=== PATIENT | male | born 1960 | race Caucasian/White ===

== ENCOUNTER → 2022-02-13 | Outpatient (CLI) | payer SELFPAY ==
--- NOTE | 2022-02-13 10:24 | Diagnostic Imaging Report ---
INDICATION: Family history of heart disease, coronary artery screening CT cardiac calcium study performed with noncontrast images of the heart followed by calculation of cardiac calcium score. Raw data images demonstrate extensive coronary calcifications. There are calcified nodes in the mediastinum compatible with granulomatous disease as well as calcified right hilar nodes compatible with granulomatous disease. There is no pleural fluid. Visualized portions of the lung latham show no focal abnormalities, the entirety lungs are not included on this study. Cardiac calcium scoring is as follows: Score of 27.8 for left main, score of 329 for LAD, score of 282 for left circumflex coronary, score of 635 for right coronary artery. Total score was 1317, compatible with extensive overall plaque burden. IMPRESSION: Elevated coronary calcium score compatible with extensive calcified plaque burden. Dictated by: Dictated on workstation # [id number]
== END ==
LOC: RAD 09:03
PROVIDERS: ATTEND Internal Medicine
DX: Z13.6 Encounter for screening for cardiovascular disorders (principal); I25.83 Coronary atherosclerosis due to lipid rich plaque
CPT/HCPCS: 75571

== ENCOUNTER → 2022-03-11 | Outpatient (CLI) | payer BC ==
[~2022-03-11] MED LIST: CATHETER FLUSH 10 ML SYR IVP PRN; REGADENOSON 0.4 MG/5 ML SYR (LEXISCAN) IV ONE
[2022-03-11 07:56] VITALS: BP 176/115
--- NOTE | 2022-03-11 10:39 | Cardiology Stress Test Report ---
Stress Test Report Date of Procedure/Referring: Date of Procedure: Mar 11, 2022 PCP Pee Decker DO Admitting Physician Admitting Physician: Attending Physician: Pee Decker DO Baseline Vital Signs Vital Signs Date Time Temp Pulse Resp B/P (MAP) Pulse Ox O2 Delivery O2 Flow Rate FiO2 03/11/22 07:56 78 176/115 (135) Summary: Patient receive a resting and stress dose of Myoview, images were acquired and reviewed in the short axis view, horizontal long axis view and vertical long axis view. TID: 1.23 SSS: 3 SDS: 3 EF: 60 1. Diaphragmatic attenuation affecting the quality of the images, there is reversible ischemia involving the inferolateral wall and transient ischemic dilatation suggestive of multi vessel coronary artery disease 2. Normal left ventricular size, ejection fraction 60% Copy Copies To 1: PEE DECKER BASHAR J MD Mar 11, 2022 10:39
== END ==
LOC: CARD 07:00
PROVIDERS: ATTEND Internal Medicine
DX: Z13.6 Encounter for screening for cardiovascular disorders (principal)
CPT/HCPCS: 78452; 93017; A9502

== ENCOUNTER 2022-04-24 10:00 | Day surgery (SDC) | payer BC ==
[~2022-04-24] VITALS: Ht 177 cm; Wt 95.6 kg
[2022-04-24] VITALS (9 sets, daily range): BP systolic 126–142; BP diastolic 67–92
--- NOTE | 2022-04-24 08:41 | Diagnostic Imaging Report ---
INDICATION: dyspnea. TECHNIQUE: Single view chest 8:26 AM. CORRELATION STUDY: None FINDINGS: The heart size, mediastinal configuration and pulmonary vascularity are within normal limits. The lungs are clear with no consolidating infiltrate. There is no significant effusion or pneumothorax. IMPRESSION: 1. Negative appearing single view chest. Dictated by: Dictated on workstation # [id number]
[2022-04-24 09:08] LABS: HEMATOCRIT 48 % (40-54); HEMOGLOBIN 17.3 g/dL (13.3-17.7); MEAN CORPUSCULAR HEMOGLOBIN 31 pg (25-34); MEAN CORPUSCULAR HGB CONC 36 g/dL (32-36); MEAN CORPUSCULAR VOLUME 86 fL (80-99); MEAN PLATELET VOLUME 8.6 fL (9.0-12.2); PLATELET COUNT 275 10^3/uL (130-400); WHITE BLOOD COUNT 6.8 10^3/uL (4.3-11.0)
[2022-04-24 09:19] LABS: PROTHROMBIN TIME PATIENT 13.3 SEC (12.2-14.7)
[2022-04-24 09:27] LABS: ALBUMIN 4.2 GM/DL (3.2-4.5); CALCIUM 9.4 MG/DL (8.5-10.1); CREATININE SERUM 1.14 MG/DL (0.60-1.30); POTASSIUM 3.9 MMOL/L (3.6-5.0); TOTAL PROTEIN 7.3 GM/DL (6.4-8.2)
[~2022-04-24 10:00] MED LIST changes: +ASPI-1238 PO; +ATOR20TA66 PO; -CATHETER FLUSH 10 ML SYR IVP PRN; +CHOL400T PO; +HEParin (CATH LAB) 2,000 ML IV ONE; +LIDOCAINE 1% INJ 20 ML VIAL ONE; +NS IV 1000 ML 1,000 ML IV SCH; +NS IV 1000 ML 1,000 ML ONE; +OMEP20TA56 PO; -REGADENOSON 0.4 MG/5 ML SYR (LEXISCAN) IV ONE
--- NOTE | 2022-04-24 10:16 | Cardiac Procedure Note-CS/ASA ---
Pre-Procedure Note Pre-Op Procedure Note Date of Available H&P: Apr 15, 2022 Date H&P Reviewed: Apr 24, 2022 Time H&P Reviewed: 10:15 History & Physical: H&P Reviewed, Patient Examed, No changes noted Pre-Operative Diagnosis: CAD Conscious Sedation Pre-Proced Time 10:15 ASA Score 3 For ASA 3 and 4: Consider anesthesia and medical clearance. Also, for patients with a history of failed moderate sedation consider anesthesia. Airway Lungs Heart ASA score ASA 1: a normal healthy patient ASA 2: a patient with a mild systemic disease (mid diabetes, controlled hypertension, obesity ASA 3: a patient with a severe systemic disease that limits activity (angina, COPD, prior Myocardial infarction) ASA 4: a patient with an incapacitating disease that is a constant threat to life (CHF, renal failure) ASA 5: a moribund patient not expected to survive 24 hrs. (ruptured aneurysm) ASA 6: a declared brain- patient whose organs are being harvested. For emergent operations, add the letter E after the classification Mallampati Classification Grade 3 Sedation Plan Analgesia, Amnesia, Plan communicated to team members, Discussed options with patient/fam, Discussed risks with patient/fam The patient is an appropriate candidate to undergo the planned procedure, sedation, and anesthesia. The patient immediately re-assessed prior to indication. FIDEL ALCARAZ MD Apr 24, 2022 10:15
[2022-04-24] MEDS ORDERED: HEParin 1000 UNIT/ML (10ML VIAL) FOR BOLUS ONE (10:31)
[2022-04-24] MEDS ORDERED: VERAPAMIL 5 MG/2 ML (CALAN) VIAL IV ONE (10:31)
[2022-04-24] MEDS ORDERED: NITRO DRIP 25000 MCG/D5W 250 ML IV ONE (10:31)
--- NOTE | 2022-04-24 11:05 | Discharge Inst-Post CATH ---
Discharge Inst-CATH/EP Problems Reviewed?: Yes Post Cardiac Cath/EP D/C Inst Follow Up/Plan Appointment with Dr. Morales's office in 2 to 4 weeks <b>CARDIAC CATH/EP PROCEDURE DISCHARGE INSTRUCTIONS</b> ACTIVITY * Go Home directly and rest. * Limit activity of the leg (or wrist if it was used) for 7 days including aer obics, swimming, jogging, bicycling, etc. * Restrict stair-climbing for 7 days if possible, if not, climb up with your non-cath leg, then bring together on the same step. * Avoid lifting, pushing, pulling or excessive movement of the affected extremi ty for 7 days. * Customary sexual activity may be resumed after 2 days-use caution not to use a position that strains or causes pain to the affected extremity. * No driving for 24 hours. * NO SMOKING. * Avoid straining for bowel movements for 7 days. * Gentle walking on level ground is allowed. * Returning to work will depend on the type of procedure and the results. Your doctor will discuss this with you. CALL YOUR DOCTOR FOR ANY OF THE FOLLOWING: *If bleeding from the puncture site occurs- Apply gentle pressure to site with clean cloth and call your doctor or EMS. * If a knot or lump forms under the skin, increases in size, or causes pain. * If bruising appears to be worsening or moving further down your leg instead of disappearing. * Temperature above 101 F. CARE OF YOUR GROIN INCISION; * Bruising or purple discoloration of the skin near the puncture site is common. * You may shower only, no bathtub bathing for 5 days. Be careful to avoid slipping as your leg may feel stiff. * If a closure device was used on your femoral artery, please see the attached guide regarding care of the device and your leg. * Leave dressing on FOR 24 hours. CARE OF YOUR WRIST INCISION; * Bruising or purple discoloration of the skin near the puncture site is common. * You may shower. * DO NOT submerge wrist. * Leave dressing on FOR 24 hours. FIDEL MORALES MD Apr 24, 2022 11:05
--- NOTE | 2022-04-24 11:10 | Cardiac Cath Report ---
Cardiac Cath Report Physician (s)/Match Maker (s) Physician FIDEL ALCARAZ MD Pre-Procedure Diagnosis Pre-Procedure Diagnosis: CAD Post-Procedure Note Procedure Start Date: Apr 24, 2022 Name of Procedure: Left heart catheterization Aortic arch angiogram Findings/Procedure Note PROCEDURE NOTE: 62 years old gentleman with history of hypertension, hyperlipidemia, has been having increasing dyspnea, had an abnormal stress test with transient ischemic dilatation, cardiac catheterization was advised After explaining the procedure to the patient, all pros and cons were explained, all questions were answered. The patient signed the consent and then he was placed in the cardiac catheterization laboratory. Groin was prepped in SL fashion local anesthesia was used. Sheath placed in the right radial artery, I was unable to advance J-wire, used baby J-wire, has significant tortuosity in the aortic arch. Advanced to the left ventricular cavity, pressure was measure d, pullback LV to aorta was done, engage the right coronary system, I was unable to engage the left coronary system, exchanged the cath and used Elvin left catheter, angiogram was done. Catheter was pulled up to the aortic arch and aortic arch angiogram was done due to the significant tortuosity and difficulty in the engagement and the need for referral for bypass surgery. At the end of the procedure the sheath was removed. Vascular band was used FINDINGS: Hemodynamics LV 122/6, end-diastolic pressure of 6 Aorta 113/72 mean of 71 ANATOMY: Left Main is free of obstructive disease Left Anterior Descending has 60% stenosis at the mid to distal, there is a large diagonal artery with 95% stenosis that bifurcate down almost the same size as the LAD. Left Circumflex has 70% stenosis proximally and distally. Right Coronary Artery is dominant artery large artery with 60% stenosis at the mid right coronary artery LV Gram was not done, pressure was measured CONCLUSION: 1. Severe multivessel coronary artery disease involving a large diagonal artery with 95% stenosis of the diagonal that bifurcate and has almost the same size as the LAD. The LAD itself has 60% stenosis at the midportion, circumflex artery has 2 severe lesion proximally and distally, right coronary artery is a large dominant artery with severe stenosis at the midportion 2. Preserved left ventricular function per stress test and echo with normal LV EDP DISCUSSION AND RECOMMENDATION: Continue to maximize medical therapy and refer for evaluation for CABG Anesthesia Type: Conscious Sedation Estimated blood loss (mL): 25 ml Contrast Amount: 36 ml Total Radiation Dose: 320 mGy Post-Procedure Diagnosis Post-operative diagnosis: Coronary artery disease Hypertension Hyperlipidemia FIDEL ALCARAZ MD Apr 24, 2022 11:10
[2022-04-24] MEDS ORDERED: NS IV 1000 ML 1,000 ML IV SCH (11:15)
== END 2022-04-24 13:45 | disposition home or self-care (01) ==
LOC: CATH 10:00 → SDC 11:17 → CATH 13:45
PROVIDERS: ATTEND Internal Medicine Cardiovascular Disease
DX: I25.10 Atherosclerotic heart disease of native coronary artery without angina pectoris (principal); I10 Essential (primary) hypertension; F17.290 Nicotine dependence, other tobacco product, uncomplicated; E78.2 Mixed hyperlipidemia; I65.23 Occlusion and stenosis of bilateral carotid arteries; Z79.899 Other long term (current) drug therapy; Z79.82 Long term (current) use of aspirin
CPT/HCPCS: 36221; 71045; 80053; 80061; 85027; 85610; 85730; 87081; 93005; 93458; C1769 ×2; C1894; 36415

== ENCOUNTER 2022-06-19 09:22 | Outpatient (RCR) | payer BC ==
[~2022-06-19 09:22] MED LIST changes: -HEParin (CATH LAB) 2,000 ML IV ONE; -LIDOCAINE 1% INJ 20 ML VIAL ONE; -NS IV 1000 ML 1,000 ML IV SCH; -NS IV 1000 ML 1,000 ML ONE
== END 2022-06-21 | disposition home or self-care (01) ==
LOC: CR 09:22
PROVIDERS: ATTEND Thoracic Surgery (Cardiothoracic Vascular Surgery)
DX: I25.119 Atherosclerotic heart disease of native coronary artery with unspecified angina pectoris (principal)
CPT/HCPCS: 93798

== ENCOUNTER 2022-07-19 09:16 | Outpatient (RCR) | payer BC | END 2022-07-21 | disposition home or self-care (01) | LOC: CR 09:16 | PROVIDERS: ATTEND Thoracic Surgery (Cardiothoracic Vascular Surgery) | DX: Z29.8 Encounter for other specified prophylactic measures (principal); I25.119 Atherosclerotic heart disease of native coronary artery with unspecified angina pectoris | CPT/HCPCS: 93798 ==

== ENCOUNTER → 2022-07-19 | Outpatient (CLI) | payer BC ==
--- NOTE | 2022-07-19 16:36 | Diagnostic Imaging Report ---
EXAMINATION: Chest 2 view HISTORY: Pleural effusion COMPARISON: 04/24/2022 FINDINGS: There is a small left pleural effusion with overlying areas of scarring or atelectasis. No pneumothorax. Heart size is normal. Median sternotomy wires are aligned. Left atrial appendage clip is present. IMPRESSION: 1. Small left pleural effusion with overlying atelectasis or scarring. Dictated by: Dictated on workstation # [id number]
== END ==
LOC: RAD 11:33
PROVIDERS: ATTEND Nurse Practitioner Family
DX: J90 Pleural effusion, not elsewhere classified (principal)
CPT/HCPCS: 71046

== ENCOUNTER 2022-07-22 07:35 | Outpatient (RCR) | payer BC | END 2022-08-21 | disposition home or self-care (01) | LOC: CR 07:35 | PROVIDERS: ATTEND Thoracic Surgery (Cardiothoracic Vascular Surgery) | DX: Z29.8 Encounter for other specified prophylactic measures (principal); I25.119 Atherosclerotic heart disease of native coronary artery with unspecified angina pectoris | CPT/HCPCS: 93798 ==

== ENCOUNTER 2022-11-14 07:35 | Inpatient (IN) | payer BC ==
[~2022-11-14] VITALS: Ht 177.8 cm; Wt 91.7 kg
--- NOTE | 2022-11-14 08:09 | ED Cardiac General ---
History of Present Illness General Chief Complaint: Cardiac/General Problems Stated Complaint: HIGH BLOOD PRESSURE | POST HEART SURGERY 6 MOS Nursing Triage Note: Patient c/o elevated blood pressure last night and this am. Patient states he had bypass surgery May 10, 2022. Patient states his average blood pressure yesterday was 158/100 and was 152/103 this am. Patient denies any chest pain or increase in shortness of breath. Patient c/o slight headache last night and this am. Patient denies any visual changes. Patient denies any N/V/D. Patient states he feels anxious. Source: patient Exam Limitations: no limitations History of Present Illness Date Seen by Provider: Nov 14, 2022 Time Seen by Provider: 07:39 Initial Comments 62-year-old male with past medical history of CAD with CABG x4 about 6 months ago coming in due to he states feeling anxious. Last night he had body aches, some chest discomfort, nausea slightly but no vomiting. Denies any cough, congestion, diarrhea, rash, shortness of breath. Denies any real significant chest pain, just feels "off". He states his blood pressure was elevated last night and this morning. He is otherwise denying any other acute complaints. He states he has never really felt like this. ASA po MOBILE APPLICATION TESTER: No Allergies and Home Medications Allergies Coded Allergies: No Known Allergies (Verified Allergy, Unknown, 11/14/22) Patient Home Medication List Home Medication List Reviewed: Yes Aspirin (Aspirin EC) 81 Mg Tablet., 81 MG PO HS, (Reported) Entered as Reported by: MARQUISE HARDEN on 04/24/22913 Atorvastatin Calcium (Atorvastatin Calcium) 20 Mg Tablet, 20 MG PO HS, (Reported) Entered as Reported by: MARQUISE HARDEN on 04/24/22913 Cholecalciferol (Vitamin D3) (Vitamin D3) 10 Mcg (400 Unit) Tablet, 10 MCG PO HS, (Reported) Entered as Reported by: MARQUISE HAREDN on 04/24/22913 Omeprazole (Omeprazole) 20 Mg Tablet., 20 MG PO HS, (Reported) Entered as Reported by: MARQUISE HARDEN on 04/24/22913 Review of Systems Review of Systems Constitutional: chills; No fever; malaise EENTM: No Symptoms Reported Respiratory: No Symptoms Reported Cardiovascular: See HPI Gastrointestinal: See HPI Genitourinary: No Symptoms Reported Musculoskeletal: no symptoms reported Skin: no symptoms reported Psychiatric/Neurological: No Symptoms Reported Endocrine: No Symptoms Reported Past Qsuaazy-Hkctez-Vgoxfe Hx Patient Social History Tobacco Use?: Yes Tobacco type used: Cigars Smoking Status: Current Someday Smoker Use of E-Cig and/or Vaping dev: No Substance use?: No Alcohol Use?: Yes Alcohol type: Beer, Hard Liquor, Wine Alcohol Frequency: Couple times a week Immunizations Up To Date Influenza Vaccine Up-to-Date: Yes; Up-to-Date Past Medical History Surgery/Hospitalization HX: bypass elevated cholesterol, HTN Sleep Apnea Currently Using CPAP: No High Cholesterol, Hypertension Gastroesophageal Reflux Physical Exam Vital Signs Vital Signs - First Documented 11/14/22 11/14/22 07:47 08:25 Temp 36.0 Pulse 68 Resp 16 B/P (MAP) 145/88 (107) Pulse Ox 97 O2 Delivery Room Air Capillary Refill : Height, Weight, BMI Height: '" Weight: lbs. oz. kg; 29.00 BMI Method: General Appearance: No Apparent Distress, WD/WN HEENT: PERRL/EOMI, Normal ENT Inspection, Pharynx Normal Neck: Full Range of Motion, Normal Inspection, Non Tender, Supple Respiratory: Chest Non Tender, Lungs Clear, Normal Breath Sounds, No Accessory Muscle Use, No Respiratory Distress Cardiovascular: Regular Rate, Rhythm, No Edema, Normal Peripheral Pulses Gastrointestinal: Normal Bowel Sounds, Non Tender, Soft; No Distended, No Guarding Extremity: Normal Capillary Refill, Normal Inspection, Normal Range of Motion, Non Tender, No Calf Tenderness, No Pedal Edema Neurologic/Psychiatric: Alert, No Motor/Sensory Deficits, Normal Mood/Affect Skin: Normal Color, Warm/Dry Progress/Results/Core Measures Results/Orders Lab Results Laboratory Tests Test 11/14/22 07:55 11/14/22 08:22 Range/Units White Blood Count 7.7 4.3-11.0 10^3/uL Red Blood Count 5.65 H 4.30-5.52 10^6/uL Hemoglobin 16.5 13.3-17.7 g/dL Hematocrit 48 40-54 % Mean Corpuscular Volume 85 80-99 fL Mean Corpuscular Hemoglobin 29 25-34 pg Mean Corpuscular Hemoglobin Concent 34 32-36 g/dL Red Cell Distribution Width 13.9 10.0-14.5 % Platelet Count 324 130-400 10^3/uL Mean Platelet Volume 8.5 L 9.0-12.2 fL Immature Granulocyte % (Auto) 0 % Neutrophils (%) (Auto) 72 42-75 % Lymphocytes (%) (Auto) 17 12-44 % Monocytes (%) (Auto) 8 0-12 % Eosinophils (%) (Auto) 2 0-10 % Basophils (%) (Auto) 1 0-10 % Neutrophils # (Auto) 5.5 1.8-7.8 10^3/uL Lymphocytes # (Auto) 1.3 1.0-4.0 10^3/uL Monocytes # (Auto) 0.6 0.0-1.0 10^3/uL Eosinophils # (Auto) 0.2 0.0-0.3 10^3/uL Basophils # (Auto) 0.0 0.0-0.1 10^3/uL Immature Granulocyte # (Auto) 0.0 0.0-0.1 10^3/uL Prothrombin Time 13.3 12.2-14.7 SEC INR Comment 1.0 0.8-1.4 Activated Partial Thromboplast Time 27 24-35 SEC Sodium Level 138 135-145 MMOL/L Potassium Level 4.1 3.6-5.0 MMOL/L Chloride Level 105 98-107 MMOL/L Carbon Dioxide Level 21 21-32 MMOL/L Anion Gap 12 5-14 MMOL/L Blood Urea Nitrogen 23 H 7-18 MG/DL Creatinine 1.34 H 0.60-1.30 MG/DL Estimat Glomerular Filtration Rate 60 BUN/Creatinine Ratio 17 Glucose Level 122 H 70-105 MG/DL Calcium Level 9.3 8.5-10.1 MG/DL Corrected Calcium 9.1 8.5-10.1 MG/DL Magnesium Level 2.2 1.6-2.4 MG/DL Total Bilirubin 0.7 0.1-1.0 MG/DL Aspartate Amino Transf (AST/SGOT) 26 5-34 U/L Alanine Aminotransferase (ALT/SGPT) 34 0-55 U/L Alkaline Phosphatase 69 40-136 U/L Troponin I 0.562 *H <0.028 NG/ML B-Type Natriuretic Peptide 159.1 H <100.0 PG/ML Total Protein 7.7 6.4-8.2 GM/DL Albumin 4.2 3.2-4.5 GM/DL Lipase 19 8-78 U/L My Orders Orders - SUE GOMEZ MD Cbc With Automated Diff (11/14/22 08:06) Magnesium (11/14/22 08:06) Chest 1 View, Ap/Pa Only (11/14/22 08:06) Ekg Tracing (11/14/22 08:06) Comprehensive Metabolic Panel (11/14/22 08:06) Protime With Inr (11/14/22 08:06) Partial Thromboplastin Time (11/14/22 08:06) O2 (11/14/22 08:06) Monitor-Rhythm Ecg Trace Only (11/14/22 08:06) Ed Iv/Invasive Line Start (11/14/22 08:06) Lipase (11/14/22 08:06) Bnp Isabela (11/14/22 08:06) Troponin I Isabela (11/14/22 08:06) Aspirin Chewable Tablet (Aspirin Chewabl (11/14/22 08:15) Influenza A And B By Pcr (11/14/22 08:06) Covid 19 Inhouse Test (11/14/22 08:06) Acetaminophen Tablet (Acetaminophen Ta (11/14/22 08:15) Enoxaparin Injection (Enoxaparin Injecti (11/14/22 09:00) Code/Resuscitation (11/14/22 08:56) Medications Given in ED Current Medications Medications Dose Ordered Sig/Anny Route Start Time Stop Time Status Last Admin Dose Admin Acetaminophen 1,000 mg ONCE ONCE PO 11/14/22 08:15 11/14/22 08:16 DC 11/14/22 08:16 1,000 MG Aspirin 324 mg ONCE ONCE PO 11/14/22 08:15 11/14/22 08:16 DC 11/14/22 08:17 324 MG Vital Signs/I&O 11/14/22 11/14/22 07:47 08:25 Temp 36.0 Pulse 68 Resp 16 B/P (MAP) 145/88 (107) Pulse Ox 97 O2 Delivery Room Air Room Air Blood Pressure Mean: 107 Progress Progress Note : Progress Note 62-year-old male with above history coming in with vague discomfort, some in his chest. ABCs were intact and vitals were stable on presentation. Physical exam reassuring with no focal abnormalities. EKG with T wave inversions in V1 and V2 and ST depression in the high lateral leads which appears new from prior EKG on my interpretation. Chest x-ray with no obvious pneumonia or pneumothorax on my interpretation. An IV was placed and basic labs were obtained were significant for normal white blood cell count, normal hemoglobin, slightly elevated creatinine 1.3 just above his baseline, and elevated troponin at 0.56. I contacted Dr. Morales on cardiology. The patient has already received aspirin, he recommended giving Lovenox and trending the troponin. I then contacted Dr. Gonzalez who admit the patient to the cardiac stepdown for further evaluation and management Initial ECG Impression Date: Nov 14, 2022 Initial ECG Impression Time: 08:31 Initial ECG Rate: 64 Initial ECG Rhythm: Normal Sinus Comment Narrow QRS, normal axis, ST depressions in the high lateral leads with T wave inversions in V1 and V2, no STEMI Diagnostic Imaging Diagonstic Imaging: Xray (chest) Comments [facility] [place], [place] NAME: PARIS MACIAS [employer] REC#: [id number] PT STATUS: REG ER : 1960 PHYSICIAN: SUE GOMEZ MD ADMIT DATE: 11/14/22/ER Draft Date of Exam:11/14/22 CHEST 1 VIEW, AP/PA ONLY EXAMINATION: Chest 1 view HISTORY: Chest pain COMPARISON: 04/24/2022 FINDINGS: There has been an interval median sternotomy and coronary artery bypass graft. There is atelectasis in the left mid and lower zone. No pneumothorax. Right lung is clear. IMPRESSION: 1. Left mid and lower zone atelectasis. Dictated on workstation # [id number] Dict: 11/14/22 0838 Trans: 11/14/22 0840 ILANA [id number] Interpreted by: SERGEY GARCIA MD Electronically signed by: Departure Impression Primary Impression: NSTEMI (non-ST elevated myocardial infarction) Disposition: ADMITTED INPATIENT Condition: Stable Admissions Decision to Admit Reason: Admit from ER (General) Decision to Admit/Date: Nov 14, 2022 Time/Decision to Admit Time: 08:45 Departure-Patient Inst. Referrals: PEE DOMINGUEZ DO (PCP/Family) Primary Care Physician SUE GOMEZ MD Nov 14, 2022 08:09
[2022-11-14 08:15] LABS: BASOPHILS % (AUTO) 1 % (0-10); EOSINOPHILS # (AUTO) 0.2 10^3/uL (0.0-0.3); EOSINOPHILS % (AUTO) 2 % (0-10); HEMATOCRIT 48 % (40-54); HEMOGLOBIN 16.5 g/dL (13.3-17.7); LYMPHOCYTES # (AUTO) 1.3 10^3/uL (1.0-4.0); LYMPHOCYTES % (AUTO) 17 % (12-44); MEAN CORPUSCULAR HEMOGLOBIN 29 pg (25-34); MEAN CORPUSCULAR HGB CONC 34 g/dL (32-36); MEAN CORPUSCULAR VOLUME 85 fL (80-99); MEAN PLATELET VOLUME 8.5 fL (9.0-12.2); MONOCYTES # (AUTO) 0.6 10^3/uL (0.0-1.0); MONOCYTES % (AUTO) 8 % (0-12); NEUTROPHILS # (AUTO) 5.5 10^3/uL (1.8-7.8); NEUTROPHILS % (AUTO) 72 % (42-75); PLATELET COUNT 324 10^3/uL (130-400); WHITE BLOOD COUNT 7.7 10^3/uL (4.3-11.0)
[2022-11-14] MEDS ORDERED: ACETAMINOPHEN 500 MG TABLET PO ONE (08:15)
[2022-11-14] MEDS ORDERED: ASPIRIN 81 MG CHEWABLE TABLET PO ONE (08:15)
[2022-11-14 08:18] LABS: ALBUMIN 4.2 GM/DL (3.2-4.5); POTASSIUM 4.1 MMOL/L (3.6-5.0)
[2022-11-14 08:19] LABS: CALCIUM 9.3 MG/DL (8.5-10.1)
[2022-11-14 08:20] LABS: TOTAL PROTEIN 7.7 GM/DL (6.4-8.2)
[2022-11-14 08:22] LABS: BILIRUBIN,TOTAL 0.7 MG/DL (0.1-1.0)
[2022-11-14 08:23] LABS: PROTHROMBIN TIME PATIENT 13.3 SEC (12.2-14.7)
[2022-11-14 08:24] LABS: CREATININE SERUM 1.34 MG/DL (0.60-1.30)
[2022-11-14 08:27] LABS: MAGNESIUM 2.2 MG/DL (1.6-2.4)
--- NOTE | 2022-11-14 08:41 | Diagnostic Imaging Report ---
EXAMINATION: Chest 1 view HISTORY: Chest pain COMPARISON: 04/24/2022 FINDINGS: There has been an interval median sternotomy and coronary artery bypass graft. There is atelectasis in the left mid and lower zone. No pneumothorax. Right lung is clear. IMPRESSION: 1. Left mid and lower zone atelectasis. Dictated by: Dictated on workstation # [id number]
[2022-11-14] MEDS ORDERED: ENOXAPARIN 100 MG/1 ML SYRINGE SC ONE (09:00)
[2022-11-14 11:00] VITALS: BP 135/83
[2022-11-14] MEDS ORDERED: ONDANSETRON INJECTION 4 MG/2 ML (SDV) IVP PRN (11:30)
[2022-11-14] MEDS ORDERED: PATIENT MAY USE OWN MEDS, ALL PO SCH ×2 (11:30→17:30)
[2022-11-14] MEDS ORDERED: morphine INJ 4 MG/ML 1 ML (VIAL/SYRINGE) IV PRN (11:30)
[2022-11-14] MEDS ORDERED: NITROGLYCERIN 0.4 MG SL TABLETS BTL 25'S SL PRN (11:30)
--- NOTE | 2022-11-14 11:42 | History & Physical-Hospitalist ---
History of Present Illness HPI/Chief Complaint Patient is 62-year-old male with past medical history of coronary artery disease status post CABG in April of this year who presented to the emergency department due to generalized malaise and body aches. He reports he felt well yesterday until last evening when symptoms started "like a light switch." He reports that his blood pressure was elevated for him but was only in the 150s when he checked it last night. He has had body aches and chest discomfort that he describes as a tightness. He is unable to specify exactly how he feels but he states that he just "feels off." In the emergency departme nt he was swabbed for flu and COVID and those were both negative. He denies any cough or shortness of breath. EKG was obtained and revealed new T wave inversion in V1 V2 though we do not have baseline EKG since his CABG. A troponin level was checked and was elevated at 0.562. [facility]. He was given aspirin and therapeutic Lovenox in the emergency department. He normally follows with Dr. Morales for cardiology care. Source: patient Date Seen 11/14/22 Time Seen by a Provider: 11:37 Attending Physician Beau Decker DO PCP Admitting Physician: Pacheco Mcarthur MD Attending Physician: Pacheco Mcarthur MD Referring Physician Date of Admission Nov 14, 2022 at 10:36 Home Medications & Allergies Home Medications Reviewed patient Home Medication Reconciliation performed by pharmacy medication reconciliations technician's helper and/or nursing. Patients Allergies have been reviewed. Allergies Allergies Coded Allergies No Known Allergies (Verified Allergy, Unknown, 11/14/22) Past Parldwu-Eqkbwx-Alrmyt Hx Patient Social History Marrital Status: Tobacco Use?: Yes Tobacco type used: Cigars Smoking Status: Current Someday Smoker Use of E-Cig and/or Vaping dev: No Substance use?: No Alcohol Use?: Yes Alcohol type: Beer, Hard Liquor, Wine Alcohol Frequency: Couple times a week Current Status Communicates: Verbally Primary Language: Mosotho Preferred Spoken Language: Mosotho Is interpretation needed?: No Implanted or Applied Medical D: None Past Medical History Sleep Apnea Currently Using CPAP: No High Cholesterol, Hypertension Gastroesophageal Reflux Review of Systems Constitutional: see HPI Physical Exam Physical Exam Vital Signs Vital Signs - First Documented 11/14/22 11/14/22 07:47 08:25 Temp 36.0 Pulse 68 Resp 16 B/P (MAP) 145/88 (107) Pulse Ox 97 O2 Delivery Room Air Capillary Refill : Height, Weight, BMI Height: '" Weight: lbs. oz. kg; 29.00 BMI Method: General Appearance: No Apparent Distress, WD/WN Respiratory: Chest Non Tender, Lungs Clear, No Respiratory Distress Cardiovascular: Regular Rate, Rhythm, No Murmur, Other (midline scar on chest noted from pervious CABG) Gastrointestinal: Normal Bowel Sounds, Non Tender, Soft Extremity: Non Tender, No Pedal Edema Neurologic/Psychiatric: Alert, Oriented x3, Normal Mood/Affect Results Results/Procedures Labs Laboratory Tests 11/14/22 07:55 11/15/22 04:40 Patient resulted labs reviewed. Imaging: Reviewed Imaging Report Imaging [facility] [place], [place] NAME: PARIS MACIAS [facility] REC#: [id number] PT STATUS: REG ER : 1960 PHYSICIAN: SUE GOMEZ MD ADMIT DATE: 11/14/22/ER Draft Date of Exam:11/14/22 CHEST 1 VIEW, AP/PA ONLY EXAMINATION: Chest 1 view HISTORY: Chest pain COMPARISON: 04/24/2022 FINDINGS: There has been an interval median sternotomy and coronary artery bypass graft. There is atelectasis in the left mid and lower zone. No pneumothorax. Right lung is clear. IMPRESSION: 1. Left mid and lower zone atelectasis. Dictated on workstation # [id number] Dict: 11/14/22 0838 Trans: 11/14/22 0840 ILANA [id number] Interpreted by: SERGEY GARCIA MD Electronically signed by: Assessment/Plan Admission Diagnosis NSTEMI Admission Status: Inpatient Order (span 2 midnights) Reason for Inpatient Admission: see below Assessment and Plan NSTEMI CAD s/p CABG Trop elevated on arrival ASA and Lovenox given in ER Monitor on telemetry Trend troponin Nitro and Morphine available prn chest pain Cardiology consulted, appreciate recs pAF Rx for amiodarone in fill history but patient reports having a monitor at home and being told he doesn't have a fib Clinical Quality Measures AMI/AHF: ASA po Prior to arrival: PACHECO Gonzalez MD Nov 14, 2022 11:42
[2022-11-14] MEDS ORDERED: ACETAMINOPHEN 500 MG TABLET ONE (13:03)
[2022-11-14] MEDS: ACETAMINOPHEN 500 MG TABLET PO PRN (13:07)
[2022-11-14] MEDS ORDERED: LEVO5TAB12 PO (13:22)
[2022-11-14] MEDS ORDERED: ATOR40TA70 PO (13:22)
[2022-11-14] MEDS ORDERED: METO50TA15 PO (13:22)
[2022-11-14] MEDS ORDERED: CHOL-34 PO (13:22)
[2022-11-14] MEDS ORDERED: LIDOCAINE 1% INJ 20 ML VIAL ONE (13:27)
[2022-11-14] MEDS ORDERED: HEParin (CATH LAB) 2,000 ML IV ONE (13:27)
[2022-11-14] MEDS ORDERED: NS IV 1000 ML 1,000 ML IV SCH (13:30)
[2022-11-14 16:00] VITALS: BP 129/82
--- NOTE | 2022-11-14 16:26 | Cardiac Procedure Note-CS/ASA ---
Pre-Procedure Note Pre-Op Procedure Note Date of Available H&P: Nov 14, 2022 Date H&P Reviewed: Nov 14, 2022 Time H&P Reviewed: 16:26 History & Physical: H&P Reviewed, Patient Examed, No changes noted Pre-Operative Diagnosis: CAD Moderate Sedation PreProcedure Time 16:26 ASA Score 3 Airway Lungs Heart ASA score ASA 1: a normal healthy patient ASA 2: a patient with a mild systemic disease (mid diabetes, controlled hypertension, obesity ASA 3: a patient with a severe systemic disease that limits activity (angina, COPD, prior Myocardial infarction) ASA 4: a patient with an incapacitating disease that is a constant threat to life (CHF, renal failure) ASA 5: a moribund patient not expected to survive 24 hrs. (ruptured aneurysm) ASA 6: a declared brain- patient whose organs are being harvested. For emergent operations, add the letter E after the classification Mallampati Classification Grade 3 Sedation Plan Analgesia, Amnesia, Plan communicated to team members, Discussed options with patient/fam, Discussed risks with patient/fam The patient is an appropriate candidate to undergo the planned procedure, sedation, and anesthesia. The patient immediately re-assessed prior to indication. FIDEL ALCARAZ MD Nov 14, 2022 16:26
--- NOTE | 2022-11-14 16:26 | Consultation-Cardiology ---
HPI-Cardiology Cardiology Consultation Date of Consultation 11/14/22 Date of Admission Time Seen by Provider: 11:37 Indication: Chest pain HPI 62-year-old gentleman with history of coronary artery disease, history of CABG in April 2022. Did not feel very well, had some vague chest pain radiating to the arm and feeling pressure in his arm, came into the emergency room On my evaluation he was still having some active discomfort, vague. No acute EKG changes. Cardiac enzymes were noted to be elevated Home Medications & Allergies Allergies: Coded Allergies: No Known Allergies (Verified Allergy, Unknown, 11/14/22) Home Medication List Reviewed: Yes [id number] Hx Patient Social History Marital Status: Smoking Status: Light Tobacco Smoker Alcohol Use?: Yes Past Medical History Described below Family Medical History Significant Family History: Heart Disease Review of Systems-General Review of Systems Constitutional: see HPI EENTM: see HPI, no symptoms reported Respiratory: no symptoms reported, see HPI Cardiovascular: see HPI, chest pain; No edema, No Hx of Intervention, No palpitations, No syncope, No vascular heart diseas, No other Gastrointestinal: no symptoms reported, see HPI Genitourinary: no symptoms reported, see HPI Musculoskeletal: no symptoms reported Skin: no symptoms reported Psychiatric/Neurological: No Symptoms Reported Reviewed Test Results Reviewed Test Results Lab Laboratory Tests Test 11/14/22 07:55 11/14/22 08:22 11/14/22 12:05 Range/Units White Blood Count 7.7 4.3-11.0 10^3/uL Red Blood Count 5.65 H 4.30-5.52 10^6/uL Hemoglobin 16.5 13.3-17.7 g/dL Hematocrit 48 40-54 % Mean Corpuscular Volume 85 80-99 fL Mean Corpuscular Hemoglobin 29 25-34 pg Mean Corpuscular Hemoglobin Concent 34 32-36 g/dL Red Cell Distribution Width 13.9 10.0-14.5 % Platelet Count 324 130-400 10^3/uL Mean Platelet Volume 8.5 L 9.0-12.2 fL Immature Granulocyte % (Auto) 0 % Neutrophils (%) (Auto) 72 42-75 % Lymphocytes (%) (Auto) 17 12-44 % Monocytes (%) (Auto) 8 0-12 % Eosinophils (%) (Auto) 2 0-10 % Basophils (%) (Auto) 1 0-10 % Neutrophils # (Auto) 5.5 1.8-7.8 10^3/uL Lymphocytes # (Auto) 1.3 1.0-4.0 10^3/uL Monocytes # (Auto) 0.6 0.0-1.0 10^3/uL Eosinophils # (Auto) 0.2 0.0-0.3 10^3/uL Basophils # (Auto) 0.0 0.0-0.1 10^3/uL Immature Granulocyte # (Auto) 0.0 0.0-0.1 10^3/uL Prothrombin Time 13.3 12.2-14.7 SEC INR Comment 1.0 0.8-1.4 Activated Partial Thromboplast Time 27 24-35 SEC Sodium Level 138 135-145 MMOL/L Potassium Level 4.1 3.6-5.0 MMOL/L Chloride Level 105 98-107 MMOL/L Carbon Dioxide Level 21 21-32 MMOL/L Anion Gap 12 5-14 MMOL/L Blood Urea Nitrogen 23 H 7-18 MG/DL Creatinine 1.34 H 0.60-1.30 MG/DL Estimat Glomerular Filtration Rate 60 BUN/Creatinine Ratio 17 Glucose Level 122 H 70-105 MG/DL Calcium Level 9.3 8.5-10.1 MG/DL Corrected Calcium 9.1 8.5-10.1 MG/DL Magnesium Level 2.2 1.6-2.4 MG/DL Total Bilirubin 0.7 0.1-1.0 MG/DL Aspartate Amino Transf (AST/SGOT) 26 5-34 U/L Alanine Aminotransferase (ALT/SGPT) 34 0-55 U/L Alkaline Phosphatase 69 40-136 U/L Troponin I 0.562 *H 0.997 *H <0.028 NG/ML B-Type Natriuretic Peptide 159.1 H <100.0 PG/ML Total Protein 7.7 6.4-8.2 GM/DL Albumin 4.2 3.2-4.5 GM/DL Lipase 19 8-78 U/L Influenza Type A (RT-PCR) Not Detected Not Detecte Influenza Type B (RT-PCR) Not Detected Not Detecte SARS-CoV-2 RNA (RT-PCR) Not Detected Not Detecte Physical Exam Physical Exam Vital Signs Vital Signs - First Documented 11/14/22 11/14/22 07:47 08:25 Temp 36.0 Pulse 68 Resp 16 B/P (MAP) 145/88 (107) Pulse Ox 97 O2 Delivery Room Air Capillary Refill : Height, Weight, BMI Height: '" Weight: lbs. oz. kg; 30.17 BMI Method: General Appearance: No Apparent Distress, WD/WN Eyes: Bilateral Eye Normal Inspection, Bilateral Eye PERRL, Bilateral Eye EOMI HEENT: PERRL/EOMI, Normal ENT Inspection, Pharynx Normal Neck: Full Range of Motion, Normal Inspection, Non Tender, Supple Respiratory: Chest Non Tender, Lungs Clear, No Respiratory Distress Cardiovascular: Regular Rate, Rhythm, No Murmur, Other (midline scar on chest noted from pervious CABG) Gastrointestinal: Normal Bowel Sounds, Non Tender, Soft Back: Normal Inspection, No CVA Tenderness, No Vertebral Tenderness Extremity: Non Tender, No Pedal Edema Neurologic/Psychiatric: Alert, Oriented x3, Normal Mood/Affect Skin: Normal Color, Warm/Dry Lymphatic: No Adenopathy A/P-Cardiology Admission Diagnosis Non-ST elevation myocardial infarction Coronary artery disease Hypertension Hyperlipidemia Assessment/Plan Non-ST elevation myocardial infarction, still having active vague chest pain I am planning to proceed with cardiac catheterization possible PTCA Coronary artery disease, CABG time for done in April 2022 with FLORES to LAD, vein graft to the PDA, vein graft to OM1 and radial to diagonal Patient is having active chest discomfort and elevated troponin, planning to proceed with cardiac catheterization Postoperative atrial fibrillation, maintained on amiodarone Hyperlipidemia, maintained on Lipitor 40 mg daily Monitor lipids Mild bilateral carotid stenosis nonobstructive disease Strong family history of heart disease Gastroesophageal reflux disease Clinical Quality Measures AMI/AHF: ASA po Prior to arrival: FIDEL Boston MD Nov 14, 2022 16:26
[2022-11-14] MEDS ORDERED: fentaNYL INJECTION 100 MCG/2 ML VIAL ONE ×2 (16:36→16:39)
[2022-11-14] MEDS ORDERED: MIDAZOLAM INJ 5 MG/5 ML VIAL ONE (16:39)
[2022-11-14] MEDS ORDERED: fentaNYL INJECTION 100 MCG/2 ML VIAL IVP ONE (16:45)
[2022-11-14] MEDS ORDERED: HEParin 1000 UNIT/ML (10ML VIAL) FOR BOLUS ONE (17:03)
--- NOTE | 2022-11-14 17:31 | Cardiac Cath Report ---
Cardiac Cath Report Physician (s)/Promotional Marketing Analyst (s) Physician FIDEL ALCARAZ MD Pre-Procedure Diagnosis Pre-Procedure Diagnosis: CAD Post-Procedure Note Procedure Start Date: Nov 14, 2022 Name of Procedure: Left heart catheterization Vein graft angiogram FLORES angiogram Aortic root angiogram Aortic arch angiogram Findings/Procedure Note PROCEDURE NOTE: 62-year-old gentleman with history of coronary artery disease, CABG x4, admitted with chest pain and positive troponin. After explaining the procedure to the patient, all pros and cons were explained, all questions were answered. The patient signed the consent and then he was placed on the cardiac catheterization laboratory. Groin was prepped SL fashion local anesthesia was used. Sheath placed in the artery. Elvin right and left catheter were used to access the coronary system.Vein Graft evaluated. FLORES evaluated. Elvin right advanced to the left ventricular cavity, pressure was measured, left ventriculogram was done, pullback LV to aorta was done. Engaged the vein and the free JAZMINE. I was unable to find the vein graft to the OM1. I advanced the catheter to the internal mammary artery and angiogram was done. Then I used LCV catheter and attempted to engage the vein graft. Then I advanced the pigtail catheter to the aortic root and did aortic root angiogram and aortic arch angiogram. At the end of the procedure the sheath was removed. Closure device was deployed FINDINGS: Hemodynamics LV 123/18, end-diastolic pressure of 18 Aorta 123/70 mean of 78 ANATOMY: Left Main has severe disease Left Anterior Descending is occluded proximally FLORES to LAD is patent, the free JAZMINE to diagonal is patent Left Circumflex is occluded and the vein graft to the obtuse marginal branch is occluded Right Coronary Artery is dominant artery with severe disease distally, the vein graft to the right coronary artery is patent FLORES to LAD is patent JAZMINE evaluation showed a free JAZMINE attached to the ascending aorta and diagonal artery that is patent Vein Graft evaluation showed only a vein graft to the right coronary artery is patent The vein graft to the obtuse marginal artery was not visualized, presumed occluded LV Gram showed dilated left ventricle with diffuse left ventricular hypokinesia with ejection fraction 40% Aorta evaluation done with aortic root angiogram showing slightly prominent aortic root, no dissection or aneurysm, Aortic arch angiogram showed normal aortic arch, slightly tortuous brachiocephalic phallic trunk, no obstructive disease, normal left carotid and left subclavian arteries CONCLUSION: Severe [place] coronary artery disease with patent FLORES to LAD, patent free JAZMINE to diagonal and patent vein graft to the right PDA The vein graft to the obtuse marginal branch is occluded and the [place] circumflex artery is occluded Dilated left ventricle with mild diffuse left ventricular hypokinesia with ejection fraction 40% Slightly prominent aortic root and aortic arch DISCUSSION AND RECOMMENDATION: Continue to maximize medical therapy, adding long-acting nitroglycerin. Monitor tolerance and response Anesthesia Type: Conscious Sedation Estimated blood loss (mL): 20 ml Contrast Amount: 90 ml Total Radiation Dose: 910 mGy Post-Procedure Diagnosis Post-operative diagnosis: Non-ST elevation myocardial infarction Coronary artery disease Hypertension Hyperlipidemia FIDEL ALCARAZ MD Nov 14, 2022 17:31
[2022-11-14] MEDS ORDERED: CLOPIDOGREL 300 MG TABLET PO NR (17:45)
[2022-11-14] MEDS: NS IV 1000 ML 1,000 ML IV SCH (18:14)
[2022-11-14 19:48] VITALS: BP 150/89
[2022-11-14] MEDS ORDERED: PANTOPRAZOLE 40 MG TABLET PO SCH (21:00)
[2022-11-14] MEDS: SACUBITRIL/VALSARTAN 24/26 MG TABLET PO SCH (22:17)
[2022-11-14] MEDS: meTOprolol TARTRATE (IR) 50 MG TABLET PO SCH (22:17)
[2022-11-15] VITALS: BP 134/80
[2022-11-15 03:42] VITALS: BP 132/84
[2022-11-15] MEDS: NS IV 1000 ML 1,000 ML IV SCH (03:58)
[2022-11-15 05:06] LABS: HEMATOCRIT 44 % (40-54); HEMOGLOBIN 15.1 g/dL (13.3-17.7); MEAN CORPUSCULAR HEMOGLOBIN 29 pg (25-34); MEAN CORPUSCULAR HGB CONC 34 g/dL (32-36); MEAN CORPUSCULAR VOLUME 85 fL (80-99); MEAN PLATELET VOLUME 8.8 fL (9.0-12.2); PLATELET COUNT 280 10^3/uL (130-400); WHITE BLOOD COUNT 8.9 10^3/uL (4.3-11.0)
[2022-11-15 05:42] LABS: CALCIUM 8.8 MG/DL (8.5-10.1)
[2022-11-15 05:47] LABS: CREATININE SERUM 1.09 MG/DL (0.60-1.30)
[2022-11-15 07:59] VITALS: BP 125/85
[2022-11-15] MEDS ORDERED: CLOP75TA28 PO (08:37)
--- NOTE | 2022-11-15 08:38 | Discharge Inst-Simple/Standard ---
Discharge Inst-Standard Discharge Medications New, Converted or Re-Newed RX: Transmitted to Pharmacy Patient Instructions/Follow Up Plan of Care/Instructions/FU: Please continue to take your medications as written. Please follow up with your primary care doctor to follow up this hospital stay. Activity as Tolerated: Yes Discharge Diet: Low Sodium Diet, Cardiac Diet Return to The Hospital For: Chest pain, shortness of breath, fever, weakness, if you feel you are getting worse. PACHECO CELAYA MD Nov 15, 2022 08:38
[2022-11-15] MEDS: ACETAMINOPHEN 500 MG TABLET PO PRN (08:45)
[2022-11-15] MEDS ORDERED: EMPA10TA PO (08:46)
[2022-11-15] MEDS ORDERED: SACU1TAB2 PO (08:46)
[2022-11-15] MEDS: SACUBITRIL/VALSARTAN 24/26 MG TABLET PO SCH (08:46)
[2022-11-15] MEDS: meTOprolol TARTRATE (IR) 50 MG TABLET PO SCH (08:46)
--- NOTE | 2022-11-15 08:48 | Discharge Summary ---
Diagnosis/Chief Complaint Date of Admission Nov 14, 2022 at 10:36 Date of Discharge Discharge Date: Nov 15, 2022 Admission Diagnosis NSTEMI Primary Care Beau Decker DO Discharge Summary Discharge Physical Exam Allergies: Coded Allergies: No Known Allergies (Verified Allergy, Unknown, 11/14/22) Vitals & I&Os Vital Signs Date Time Temp Pulse Resp B/P (MAP) Pulse Ox O2 Delivery O2 Flow Rate FiO2 11/15/22 11:10 69 20 117/71 94 Room Air 11/15/22 07:59 36.7 General Appearance: No Apparent Distress, WD/WN Respiratory: Lungs Clear Cardiovascular: Regular Rate, Rhythm Neurologic/Psychiatric: Alert, Oriented x3 Hospital Course Pt was admitted to the hospital due to chest pain and elevated troponin. He does have a history of recent CABG in April of this year at . Cardiology was consulted. Troponin was trended and continued to rise so he was taken to the [facility] making lab[facility] by Dr Morales. Cath report is shown below. Dr Morales recommened muna Severe [place] coronary artery disease with patent FLORES to LAD, patent free JAZMINE to diagonal and patent vein graft to the right PDA The vein graft to the obtuse marginal branch is occluded and the [place] circumflex artery is occluded Dilated left ventricle with mild diffuse left ventricular hypokinesia with ejection fraction 40% Slightly prominent aortic root and aortic arch Labs (last 24 hrs) Laboratory Tests 11/15/22 04:40: White Blood Count 8.9, Red Blood Count 5.18, Hemoglobin 15.1, Hematocrit 44, Mean Corpuscular Volume 85, Mean Corpuscular Hemoglobin 29, Mean Corpuscular Hemoglobin Concent 34, Red Cell Distribution Width 13.8, Platelet Count 280, Mean Platelet Volume 8.8L, Sodium Level 135, Potassium Level 4.0, Chloride Level 103, Carbon Dioxide Level 22, Anion Gap 10, Blood Urea Nitrogen 19H, Creatinine 1.09, Estimat Glomerular Filtration Rate 77, BUN/Creatinine Ratio 17, Glucose Level 120H, Calcium Level 8.8, Triglycerides Level 196H, Cholesterol Level 182, LDL Cholesterol Direct 135H, VLDL Cholesterol 39, HDL Cholesterol 30L Microbiology 11/14/22 MRSA Screen - Final, Complete MRSA not isolated Patient resulted labs reviewed. Pending Labs Imaging: Reviewed Imaging Report Discharge Home Medications: Active Scripts Active Entresto 24 mg-26 mg Tablet (Sacubitril/Valsartan) 24 Mg-26 Mg Tablet 1 Tab PO BID Jardiance (Empagliflozin) 10 Mg Tablet 10 Mg PO DAILY Clopidogrel (Clopidogrel Bisulfate) 75 Mg Tablet 75 Mg PO DAILY Reported Levocetirizine Dihydrochloride 5 Mg Tablet 5 Mg PO HS Vitamin D3 (Cholecalciferol (Vitamin D3)) 25 Mcg (1000 Unit) Tablet 25 Mcg PO HS Atorvastatin Calcium 40 Mg Tablet 40 Mg PO DAILY Metoprolol Tartrate 50 Mg Tablet 50 Mg PO BID Omeprazole 20 Mg Tablet.dr 20 Mg PO HS Aspirin EC (Aspirin) 81 Mg Tablet.dr 81 Mg PO HS Instructions to patient/family Please see electronic discharge instructions given to patient. Clinical Quality Measures AMI/AHF: ASA po Prior to arrival: PACHECO Gonzalez MD Nov 15, 2022 08:48
[2022-11-15] MEDS ORDERED: CLOPIDOGREL 75 MG TABLET PO SCH (09:00)
[2022-11-15] MEDS ORDERED: EMPAGLIFLOZIN 10 MG TABLET PO SCH (09:00)
[2022-11-15] MEDS ORDERED: ASPIRIN enteric coated 81MG TABLET PO SCH (09:00)
[2022-11-15] MEDS ORDERED: PANTOPRAZOLE 40 MG TABLET PO SCH (09:00)
--- NOTE | 2022-11-15 09:12 | Cardiology Progress Note ---
Subjective Date Seen by Provider: Nov 15, 2022 Time Seen by Provider: 09:07 Subjective/Events-last exam Patient was seen at bedside laying down comfortably, denied any chest pain Review of Systems General: No Chills, No Night Sweats, No Fatigue, No Malaise, No Appetite, No Other HEENT: No Head Aches, No Visual Changes, No Eye Pain, No Ear Pain, No Dysphasia, No Sinus Congestion, No Post Nasal Drip, No Sore Throat, No Other Pulmonary: No Dyspnea, No Cough, No Pleuritic Chest Pain, No Other Cardiovascular: No: Chest Pain, Palpitations, Orthopnea, Paroxysmal Noc. Dyspnea, Edema, Lt Headedness, Other Objective-Cardiology Exam Last Set of Vital Signs Vital Signs 11/15/22 07:59 Temp 36.7 Pulse 71 Resp 14 B/P (MAP) 125/85 (98) Pulse Ox 94 O2 Delivery Room Air I&O Intake and Output 11/15/22 00:00 Intake Total 230 ml Output Total 300 ml Balance -70 ml Intake Oral 230 ml Output Urine Total 300 ml # Voids 1 Daily Weight Change No General: Alert, Oriented X3, Cooperative HEENT: Atraumatic, PERRLA Neck: Supple, No JVD, No Thyromegaly Lungs: Clear to Auscultation, Normal Air Movement Heart: Regular Rate, Normal S1, Normal S2, No Murmurs Abdomen: Normal Bowel Sounds, Soft, No Tenderness, No Hepatosplenomegaly, No Masses Extremities: No Clubbing, No Cyanosis, No Edema, Normal Pulses, No Tenderness/Swelling Skin: No Rashes, No Breakdown, No Significant Lesion Neuro: Normal Gait, Normal Speech, Strength at 5/5 X4 Ext, Normal Tone, Sensation Intact Psych/Mental Status: Mental Status NL, Mood NL Results Lab Laboratory Tests 11/15/22 04:40 A/P-Cardiology Admission Diagnosis Non-ST elevation myocardial infarction Coronary artery disease Hypertension Hyperlipidemia Assessment/Plan Non-ST elevation myocardial infarction, still having active vague chest pain Inoperable disease. Coronary artery disease, CABG time for done in April 2022 with FLORES to LAD, vein graft to the PDA, vein graft to OM1 and radial to diagonal Cardiac catheterization was done on November 14, 2022 showed occluded [place] LAD and circumflex artery severe disease at the distal [place] right coronary artery, patent FLORES to LAD, free JAZMINE to diagonal, vein graft to the right coronary artery and occluded vein graft to the obtuse marginal branch. The circumflex artery is receiving collaterals from the right coronary system. Not amendable to intervention, medical therapy is recommended We will continue on aspirin and Plavix Congestive heart failure, acute left ventricular systolic dysfunction, ischemic cardiomyopathy, ejection fraction 40%. Starting Coreg and Entresto and Jardiance. Postoperative atrial fibrillation, currently off amiodarone Maintained in sinus rhythm Continue to monitor Hyperlipidemia, maintained on Lipitor 40 mg daily Monitor lipids Mild bilateral carotid stenosis nonobstructive disease Strong family history of heart disease Gastroesophageal reflux disease FIDEL ALCARAZ MD Nov 15, 2022 09:12
[2022-11-15 11:10] VITALS: BP 117/71
--- NOTE | 2022-11-19 22:28 | Physician Query Clarification ---
PQ-CHF Specificity Admission Date: Nov 14, 2022 at 10:36 Discharge Date: Nov 15, 2022 at 11:18 The medical record reflects the following clinical scenario: History/Risk Factors: A 62 years old male patient admitted with NSTEMI, congestive heart failure was documented in medical record. Cardiology progress notes, 11/15: NSTEMI, congestive heart failure, acute left ventricular dysfunction, ischemic cardiomyopathy. Clinical Findings: BNP - 159.1 H, ejection fraction - 40% Treatment: Coreg, Entresto and Jardiance. Question: Can you further specify the acuity &/or type of CHF per the clinical indicators above? Please document a response in the Progress Notes or Discharge Summary. 1. Acuity: Acute, Chronic or Acute on Chronic 2. Type: Systolic, Diastolic or Systolic & Diastolic 3. Unspecified: CHF cannot be further specified regarding type or acuity 4. Other, with explanation of clinical findings 5. Clinically undetermined, no explanation for clinical findings PHYSICIAN RESPONSE Acuity: Acute Type: Systolic In responding to this query, please exercise your independent professional judgment. The purpose of this communication is to more accurately reflect the complexity of your patients condition. The fact that a question is asked does not imply that any particular answer is desired or expected. Thank you for your timely response to this clarification. Requestors name: [ ] Phone # [ ] THIS PHYSICIAN QUERY FORM IS A PERMANENT PART OF THE MEDICAL RECORD WESLEY FABIAN Nov 19, 2022 22:28 PACHECO CELAYA MD Nov 20, 2022 15:20
== END 2022-11-15 11:18 | disposition home or self-care (01) | DRG 280 ==
LOC: EDUNIT# 07:35 → ER 07:39 → CSD 10:36
PROVIDERS: ADMIT Family Medicine; ATTEND Family Medicine
PROC: 4A023N7 Measurement of Cardiac Sampling and Pressure, Left Heart, Percutaneous Approach (ICD-10-PCS; principal; 2022-11-14)
PROC: B2111ZZ Fluoroscopy of Multiple Coronary Arteries using Low Osmolar Contrast (ICD-10-PCS; 2022-11-14)
PROC: B2181ZZ Fluoroscopy of Left Internal Mammary Bypass Graft using Low Osmolar Contrast (ICD-10-PCS; 2022-11-14)
PROC: B2131ZZ Fluoroscopy of Multiple Coronary Artery Bypass Grafts using Low Osmolar Contrast (ICD-10-PCS; 2022-11-14)
PROC: B3101ZZ Fluoroscopy of Thoracic Aorta using Low Osmolar Contrast (ICD-10-PCS; 2022-11-14)
PROC: B2151ZZ Fluoroscopy of Left Heart using Low Osmolar Contrast (ICD-10-PCS; 2022-11-14)
PROC: B2171ZZ Fluoroscopy of Right Internal Mammary Bypass Graft using Low Osmolar Contrast (ICD-10-PCS; 2022-11-14)
DX: I21.4 Non-ST elevation (NSTEMI) myocardial infarction (principal); I50.21 Acute systolic (congestive) heart failure; I25.810 Atherosclerosis of coronary artery bypass graft(s) without angina pectoris; I25.5 Ischemic cardiomyopathy; I25.10 Atherosclerotic heart disease of native coronary artery without angina pectoris; I65.23 Occlusion and stenosis of bilateral carotid arteries; F17.210 Nicotine dependence, cigarettes, uncomplicated; E78.00 Pure hypercholesterolemia, unspecified; I11.0 Hypertensive heart disease with heart failure; K21.9 Gastro-esophageal reflux disease without esophagitis; I48.0 Paroxysmal atrial fibrillation; Z95.1 Presence of aortocoronary bypass graft; Z79.899 Other long term (current) drug therapy; Z79.82 Long term (current) use of aspirin
CPT/HCPCS: 36221; 36415; 71045; 80048; 80053; 80061; 83690; 83735; 83880; 84484; 85025; 85027; 85610; 85730; 87081; 87636; 93005; 93041; 93306; 93459; 93567; 96372